=== PATIENT | female | born 1970 | race Caucasian/White ===

== ENCOUNTER 2016-08-14 15:09 | Emergency (ER) | payer MEDICAID ==
[2016-08-14 15:13] VITALS: RESP 16; TEMP 97.9
--- NOTE | 2016-08-14 15:29 | EDPHY ---
H & P Time Seen by Provider: 08/14/16 15:27 HPI/ROS: CHIEF COMPLAINT: Abdominal pain, nausea, vomiting. HISTORY OF PRESENT ILLNESS: The patient is a 46-year-old female with prothrombin deficiency and chronic intermittent nausea who presents with abdominal pain, nausea, and vomiting since this morning. She took Zofran at 1100 and 1400 to no effect, which is unusual for her. She vomited on arrival to the hospital and has had multiple episodes since. The pain is in the epigastrium and is constant. She denies fever, diarrhea, cough, recent sickness , or other complaints. REVIEW OF SYSTEMS: A complete 10-point review of systems was performed and is negative except for those items mentioned in the HPI. Past Medical/Surgical History: Endometriosis, prothrombin deficiency. Social History: Former smoker. Smoking Status: Former smoker Physical Exam: General Appearance: Alert, nontoxic Eyes: Pupils equal and round, no conjunctival pallor or injection ENT, Mouth: Mucous membranes moist Neck: Normal inspection Respiratory: Lungs are clear to auscultation Cardiovascular: Regular rate and rhythm Gastrointestinal: Mild, diffuse abdominal tenderness. Normal bowel sounds. Abdomen is soft. Neurological: A&O, nonfocal, normal gait Skin: Warm and dry, no rash Extremities: Nontender, no pedal edema Psychiatric: Mood and affect normal Constitutional: Initial Vital Signs Temperature (C) 36.6 C 08/14/16 15:11 Heart Rate 105 H 08/14/16 15:11 Respiratory Rate 16 08/14/16 15:11 Blood Pressure 138/89 H 08/14/16 15:11 O2 Sat (%) 95 08/14/16 15:11 O2 Delivery Mode Room Air Allergies/Adverse Reactions: enoxaparin sodium [From Lovenox] Allergy (Intermediate, Verified 11/07/14 15:29) red rash, pruritis Latex, Natural Rubber Allergy (Mild, Verified 11/07/14 15:29) Itching levofloxacin [From Levaquin] Allergy (Verified 09/16/15 06:59) soybean Allergy (Verified 11/07/14 15:29) sneezing, coughing Home Medications: Medication Instructions Recorded Acetaminophen [Tylenol 325mg (*)] 325 mg PO DAILY PRN 09/16/15 Fluticasone/Salmeter 500/50Mcg 1 puffs IH BID 09/16/15 [Advair 500/50 (*)] Ipratropium/Albuterol [Combivent 1 inh IH QID 09/16/15 Respimat Inhal [place](*)] Levothyroxine [Synthroid 50 mcg 50 mcg PO DAILY06 09/16/15 (*)] Metoprolol Tartrate [Lopressor 50 50 mg PO BID 09/16/15 mg (*)] Montelukast Sodium [Singulair 10 10 mg PO DAILY@1800 09/16/15 mg (*)] Warfarin Sodium [Coumadin 5MG (*)] 5 mg PO SUMOTUTHFRSA@20 09/16/15 Warfarin Sodium [Coumadin 5MG (*)] 7.5 mg PO WE@20 09/16/15 guaiFENesin [Mucinex 600 MG (*)] 600 mg PO BID 09/16/15 oxyCODONE IR [Oxycodone Ir (*)] 20 mg PO QID 09/16/15 Amoxicillin Trihydrate [Amoxil] 500 mg PO Q12 #14 cap 09/17/15 Medical Decision Making - Diagnostics Imaging: Study: Ultrasound of the: RUQ Indication: Pain, vomiting. Results: 1. No cholelithiasis or biliary ductal dilation. 2. Hepatomegaly and hepatic steatosis without evidence of ascites. 3. No right hydronephrosis. 4. No peripancreatic fluid. 5. Aorta obscured by bowel gas. No acute process. The study was read by the radiologist, Dr. Gomes. I viewed the images myself on the PACS system. ED Course/Re-evaluation: An IV was established. 1L IV saline administered for hydration, along with 12.5mg IV Phenergan for nausea and vomiting. 1622: Reassessed patient. She is still quite nauseated. 10mg IV Reglan administered. On exam she has continued epigastric tenderness. RUQ ultrasound ordered. 170: Patient still nauseated. Additional 12.5mg IV Phenergan administered. I spoke with Dr. Gomes, radiology, who reported the US to me negative for gallstones. No evidence of biliary colic or pancreatitis. Feels much better after Phenergan, wants to go home. Will stay on clear liquids for 24hrs. Abd remains benign. Abd pain precautions given. Differential Diagnosis: includes though not limited to cholecystitis, pancreatitis, SBO, PUD, appy. - Data Points Laboratory Results: Laboratory Results 08/14/16 15:40 08/14/16 15:40 Medications Given: Discontinued Medications Sodium Chloride (Ns) 1,000 mls @ 0 mls/hr IV ONCE ONE PRN Reason: Wide Open Stop: 08/14/16 15:37 Last Admin: 08/14/16 15:44 Dose: 1,000 mls Metoclopramide HCl (Reglan Injection) 10 mg IVP EDNOW ONE Stop: 08/14/16 16:22 Last Admin: 08/14/16 16:32 Dose: 10 mg Promethazine HCl (Phenergan Injection) 12.5 mg IVP EDNOW ONE Stop: 08/14/16 15:37 Last Admin: 08/14/16 15:48 Dose: 12.5 mg Promethazine HCl (Phenergan Injection) 12.5 mg IVP EDNOW ONE Stop: 08/14/16 17:08 Last Admin: 08/14/16 17:12 Dose: 12.5 mg Promethazine HCl (Phenergan 25 Mg Prepack #4) 1 btl TAKEHOME EDNOW ONE Stop: 08/14/16 17:48 Last Admin: 08/14/16 17:52 Dose: 1 btl Departure - Departure Disposition: Home, Routine, Self-Care Clinical Impression: Vomiting Qualifiers: Vomiting type: unspecified Vomiting Intractability: non-intractable Nausea presence: with nausea Qualifier Code: (R11.2) Nausea with vomiting, unspecified Abdominal pain Qualifiers: Abdominal location: left upper quadrant Qualifier Code: (R10.12) Left upper quadrant pain Condition: Good Instructions: Acute Nausea and Vomiting (ED), Acute Abdominal Pain (ED), Promethazine (By mouth) Additional Instructions: Drink only clear fluids tonight and tomorrow morning. Advance diet slowly as tolerable. Follow up with your primary care provider in the next 2-3 days if symptoms are not improving. Return to the emergency department if you experience serious worsening of condition. Referrals: EDWAR ADAMS [Primary Care Provider] - As per Instructions Report Scribed for: Valencia Christian Report Scribed by: Jair Camargo Date of Report: 08/14/16 Time of Report: 15:32 Physician Review and Approval Statement: 08/14/16 15:32 Portions of this note were transcribed by a medical referral coordinator. I personally performed a history, physical exam, medical decision making, and confirmed accuracy of information the transcribed note.
[2016-08-14] MEDS ORDERED: PROMETHAZINE HCL 25 MG/ML INJ IVP ONE ×2 (15:36→17:07)
[2016-08-14] MEDS ORDERED: NS 1,000 ML IV ONE (15:36)
[2016-08-14 15:51] LABS: % IMMATURE GRANULYOCYTES 0.3 % (0.0-1.1); ABSOLUTE IMMATURE GRANULOCYTES 0.04 10^3/uL (0.00-0.10); ADD DIFF? NO; ADD MORPH? NO; ADD SCAN? NO; ATYPICAL LYMPHOCYTE FLAG 0 (0-99); FRAGMENT RBC FLAG 0 (0-99); HEMATOCRIT 41.9 % (38.0-47.0); LEFT SHIFT FLG 0 (0-99); LIPEMIA HEMOLYSIS FLAG 80 (0-99); MEAN CELL HEMOGLOBIN 29.7 pg (27.9-34.1); MEAN CELL HEMOGLOBIN CONCENTR. 33.4 g/dL (32.4-36.7); MEAN CELL VOLUME 88.8 fL (81.5-99.8); MEAN PLATELET VOLUME 9.1 fL (8.7-11.7); PLATELET CLUMPS FLAG 0 (0-99); PLATELET COUNT 290 10^3/uL (150-400); RED BLOOD CELL COUNT 4.72 10^6/uL (4.18-5.33); RED CELL DISTRIBUTION WIDTH 13.6 % (11.5-15.2)
[2016-08-14 16:09] LABS: ALANINE AMINOTRANSFERASE 35 IU/L (9-52); ALBUMIN 4.1 g/dL (3.5-5.0); ALKALINE PHOSPHATASE 72 IU/L (38-126); ANION GAP 10 mEq/L (8-16); ASPARTATE AMINOTRANSFERASE 26 IU/L (14-46); BILIRUBIN,TOTAL 0.8 mg/dL (0.1-1.4); BILIRUBIN-CONJUGATED 0.2 mg/dL (0.0-0.5); BILIRUBIN-UNCONJUGATED 0.6 mg/dL (0.0-1.1); CALCIUM 9.6 mg/dL (8.5-10.4); CARBON DIOXIDE 28 mEq/l (22-31); CHLORIDE 99 mEq/L (97-110); CREATININE 0.7 mg/dL (0.6-1.0); GLOMERULAR FILTRATION RATE > 60; GLUCOSE 105 mg/dL (70-100); POTASSIUM 3.7 mEq/L (3.5-5.2); SODIUM 137 mEq/L (134-144); TOTAL PROTEIN 7.3 g/dL (6.3-8.2)
[2016-08-14] MEDS ORDERED: METOCLOPRAMIDE 10 MG/2 ML VIAL IVP ONE (16:21)
--- NOTE | 2016-08-14 17:12 | US ---
Ultrasound of the Abdomen Limited History: Nausea, vomiting, epigastric Abdominal pain. Comparison: None. Findings: Gallbladder: No shadowing calculi, wall thickening, or pericholecystic fluid. Common bile duct is 4 m m in diameter which is normal. Liver: Diffusely increased in echogenicity without definite focal lesions and measures 21 cm in lengt h. Renal: Right kidney measures 11 x 6 x 6 cm without hydronephrosis. Pancreas: Homogeneous without peripancreatic fluid. Tail obscured by bowel gas. Aorta: Partially obscured by bowel gas.. Impression: 1. No cholelithiasis or biliary ductal dilation. 2. Hepatomegaly and hepatic steatosis without evidence of ascites. 3. No right hydronephrosis. 4. No peripancreatic fluid. 5. Aorta obscured by bowel gas. Findings and recommendations discussed with Emergency Department physician, Dr. Valencia Christian at 1705 hour, today. Final report concurs with initial preliminary interpretation.
[2016-08-14] MEDS ORDERED: PROMETHAZINE 25 MG PREPACK #4 BTL TAKEHOME ONE (17:47)
[2016-08-14 18:02] VITALS: BP 136/102; PULSE 82; O2SAT 98
== END 2016-08-14 18:11 | disposition home or self-care (01) ==
DX: R11.2 Nausea with vomiting, unspecified (principal); R10.12 Left upper quadrant pain; Z87.891 Personal history of nicotine dependence; Z91.040 Latex allergy status; Z79.01 Long term (current) use of anticoagulants
CPT/HCPCS: 96374; J2550; J2765

== ENCOUNTER 2016-08-26 08:33 | Emergency (ER) | payer MEDICAID ==
[2016-08-26 08:41] VITALS: O2SAT 97
--- NOTE | 2016-08-26 09:04 | CPEKG ---
Heart Rate: 95 RR Interval: 632 P-R Interval: 188 QRSD Interval: 80 QT Interval: 352 QTC Interval: 443 P [place]: 24 QRS [place]: 19 T Wave [place]: 0 EKG Severity - BORDERLINE ECG - EKG Impression: SINUS RHYTHM EKG Impression: BORDERLINE T ABNORMALITIES, ANTERIOR LEADS Electronically Signed By: Kelton Villanueva 26-Aug-2016 14:31:23
[2016-08-26] MEDS ORDERED: NS 1,000 ML IV ONE (09:09)
--- NOTE | 2016-08-26 09:16 | EDPHY ---
H & P Stated Complaint: Wheezing, tight in chest, hurts to breathe HPI/ROS: CHIEF COMPLAINT: chest tightness, shortness of breath, wheezing HISTORY OF PRESENT ILLNESS: 2-3 day history of shortness of breath, wheezing, chest tightness. Symptoms are gradual onset and constant in duration. They wax and wane from mild to moderate. No actual chest pain at rest, but with inspiration and deep breathing she does have chest tightness. She feels that she has been wheezing and having occasional palpitations as well. No nausea or vomiting. No abdominal or urinary complaints. Pain radiates up into the upper chest. 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 She has been on Coumadin with a INR that is therapeutic. No other associated complaints or modifying factors. PRIOR CARDIAC WORKUPS: stress test and heart catheterization in 2013 due to tachycardia and PE. REVIEW OF SYSTEMS: Ten systems reviewed and are negative unless otherwise noted in the HPI EXAMINATION General Appearance: Alert, no distress Head: normocephalic, atraumatic Eyes: Pupils equal and round, no conjunctival pallor or injection ENT, Mouth: Mucous membranes moist . Uvula midline pain Neck: Normal inspection, supple, non-tender Respiratory: Lungs are clear to auscultation. No wheezing, crackles or consolidation. Mild rhonchi in the lung bases. Cardiovascular: Regular rate and rhythm . No murmur. Pulses intact distally. Gastrointestinal: Abdomen is soft and nontender . No CVA tenderness Back: non-tender, no bony abnormalities Neurological: A&O, nonfocal, normal gait Skin: Warm and dry, no rash Extremities: Nontender, symmetric lower extremity 1+ edema nonpitting Psychiatric: Mood and affect normal DIFFERENTIAL DIAGNOSES: Including but not limited to Asthma exacerbation, bronchitis, pneumonia, pulmonary embolism, ACS, coronary artery disease MDM: 9:15 a.m. shortness of breath with intermittent chest tightness in a patient with previous DVT and bilateral PEs. Lungs are clear in all paiz. Given her risk factors, I have ordered a CT scan of the chest rule out PE. We will obtain an I-STAT to quickly verify her creatinine and obtain a CT scan. Her vital signs were well within normal limits and she is in no acute distress. 9:40 a.m. I have re-evaluated this patient. They remain hemodynamically stable and in no distress. No further complaints at this time.Labs and CT scan are pending 10:[address] discussed with radiologist Dr. Sommer. He noted there is no evidence of PE. No evidence of pneumonia. No bronchial or perihilar thickening. There is some calcification of the LAD. I re-evaluated the patient she is resting comfortably but does know some tightness. Troponin is negative and her Discomfort started yesterday morning. 11:00 a.m. all labs are within normal limits as well. She is still feeling some mild tightness but no actual chest pain at rest. We will consult her strategy analyst to ensure that she has close follow-up later today or tomorrow to continue her workup. The patient is comfortable with this plan and remains hemodynamically stable at this time. 11:15 a.m. I have discussed the case with the patient's cardiology office, speaking with Olive Morris NP, and she informed me that they can see the patient on Friday 1 :00 p.m.. She did review the patient's EKG on the phone with me. Patient is comfortable this plan and discharged home in stable condition. Return to the ER for any worsening pain, shortness of breath, fever, nausea or vomiting. EKG: Interpreted by Dr. Villanueva Rate is 95 beats per minute, normal sinus rhythm. OK interval 188. QT interval 352. Normal axis. T-waves inverted in AVR and V1. T-waves are flattened in the anterolateral leads. No ST depression or elevation. Interpretation: Normal sinus rhythm with borderline T waves SUPERVISION: Patient was evaluated in conjunction with the supervising physician. Please see their note for details. Source: Patient Exam Limitations: No limitations - Personal History LMP (Females 10-55): Now Current Tetanus Diphtheria and Acellular Pertussis (TDAP): Yes Tetanus Vaccine Date: 2015 - Medical/Surgical History Hx Asthma: Yes Hx Chronic Respiratory Disease: No Hx Diabetes: No Hx Cardiac Disease: No Hx Renal Disease: No Hx Cirrhosis: No Hx Alcoholism: No Hx HIV/AIDS: No Hx Splenectomy or Spleen Trauma: No Other PMH: MTFR,and prothrombin clotting disorders, Asthma, HTN, Diverticulitis , Rosasia, DVT and PE. venous reflux disease, post thrombotic syndrome - Social History Smoking Status: Former smoker Constitutional: Initial Vital Signs Temperature (C) 98.6 F 08/26/16 08:38 Heart Rate 93 08/26/16 08:38 Respiratory Rate 18 08/26/16 08:38 Blood Pressure 135/86 H 08/26/16 08:38 O2 Sat (%) 97 08/26/16 08:38 O2 Delivery Mode Room Air Allergies/Adverse Reactions: enoxaparin sodium [From Lovenox] Allergy (Intermediate, Verified 11/07/14 15:29) red rash, pruritis levofloxacin [From Levaquin] Allergy (Intermediate, Verified 08/26/16 08:38) Hives soybean Allergy (Intermediate, Verified 08/26/16 08:38) sneezing, coughing, hives Latex, Natural Rubber Allergy (Mild, Verified 11/07/14 15:29) Itching Home Medications: Medication Instructions Recorded Fluticasone Nasal [Flonase Nasal 2 sprays NASAL DAILY 08/26/16 [place] (RX)] Fluticasone/Salmeter 500/50Mcg 1 puffs IH BID 08/26/16 [Advair 500/50 (*)] Ipratropium/Albuterol [Duoneb (*)] 3 ml IH 08/26/16 Levalbuterol 1.25 mg [Xopenex 1.25 mg IH 08/26/16 1.25MG Neb (*)] Levalbuterol Inhaler [Xopenex Hfa 2 puffs IH 08/26/16 Inhaler (*)] Levothyroxine [Synthroid 50 mcg 50 mcg PO DAILY06 08/26/16 (*)] Metoprolol Tartrate [Lopressor 50 50 mg PO BID 08/26/16 mg (*)] Montelukast Sodium [Singulair 10 10 mg PO DAILY@1800 08/26/16 mg (*)] methylPREDNISolone [Medrol Dose 1 each PO AD 08/26/16 [place]] oxyCODONE CR [OxyCONTIN] 20 mg PO 08/26/16 Medical Decision Making - Data Points Laboratory Results: Laboratory Results 08/26/16 09:00 08/26/16 09:00 08/26/16 09:00 WBC 9.83 H 10^3/uL (3.80-9.50) RBC 4.77 10^6/uL (4.18-5.33) Hgb 14.2 g/dL (12.6-16.3) Hct 42.7 % (38.0-47.0) MCV 89.5 fL (81.5-99.8) MCH 29.8 pg (27.9-34.1) MCHC 33.3 g/dL (32.4-36.7) RDW 13.7 % (11.5-15.2) Plt Count 281 10^3/uL (150-400) MPV 9.4 fL (8.7-11.7) Neut % (Auto) 91.5 H % (39.3-74.2) Lymph % (Auto) 6.3 L % (15.0-45.0) [place] % (Auto) 1.1 L % (4.5-13.0) Eos % (Auto) 0.1 L % (0.6-7.6) Baso % (Auto) 0.4 % (0.3-1.7) Nucleat RBC Rel Count 0.0 % (0.0-0.2) Absolute Neuts (auto) 8.99 H 10^3/uL (1.70-6.50) Absolute Lymphs (auto) 0.62 L 10^3/uL (1.00-3.00) Absolute Monos (auto) 0.11 L 10^3/uL (0.30-0.80) Absolute Eos (auto) 0.01 L 10^3/uL (0.03-0.40) Absolute Basos (auto) 0.04 10^3/uL (0.02-0.10) Absolute Nucleated RBC 0.00 10^3/uL (0-0.01) Immature Gran % 0.6 % (0.0-1.1) Immature Gran # 0.06 10^3/uL (0.00-0.10) PT 21.0 H SEC (12.0-15.0) INR 1.80 H (0.83-1.16) APTT 37.6 SEC (23.0-38.0) Sodium 142 mEq/L (134-144) Potassium 4.2 mEq/L (3.5-5.2) Chloride 105 mEq/L (97-110) Carbon Dioxide 24 mEq/l (22-31) Anion Gap 13 mEq/L (8-16) BUN 11 mg/dL (7-23) Creatinine 0.7 mg/dL (0.6-1.0) Estimated GFR > 60 Glucose 141 H mg/dL (70-100) Calcium 9.5 mg/dL (8.5-10.4) Troponin I < 0.012 ng/mL (0-0.034) NT-Pro-B Natriuret Pep 132 H pg/mL (0-125) Medications Given: Discontinued Medications Sodium Chloride (Ns) 1,000 mls @ 0 mls/hr IV ONCE ONE PRN Reason: Wide Open Stop: 08/26/16 09:10 Last Admin: 08/26/16 09:17 Dose: 1,000 mls Departure - Departure Disposition: Home, Routine, Self-Care Clinical Impression: Shortness of breath, Chest tightness Condition: Good Instructions: Dyspnea (ED), Tachycardia (ED) Additional Instructions: Follow up with strategy analyst on Friday at 1:00 p.m. as scheduled. Return to ER for any worsening pain, nausea, sweating or shortness of breath Referrals: EDWAR ADAMS [Primary Care Provider] - As per Instructions
[2016-08-26 09:21] LABS: % IMMATURE GRANULYOCYTES 0.6 % (0.0-1.1); ABSOLUTE IMMATURE GRANULOCYTES 0.06 10^3/uL (0.00-0.10); ADD DIFF? NO; ADD MORPH? NO; ADD SCAN? NO; ATYPICAL LYMPHOCYTE FLAG 0 (0-99); FRAGMENT RBC FLAG 0 (0-99); HEMATOCRIT 42.7 % (38.0-47.0); HEMOGLOBIN 14.2 g/dL (12.6-16.3); LEFT SHIFT FLG 0 (0-99); LIPEMIA HEMOLYSIS FLAG 80 (0-99); MEAN CELL HEMOGLOBIN 29.8 pg (27.9-34.1); MEAN CELL HEMOGLOBIN CONCENTR. 33.3 g/dL (32.4-36.7); MEAN CELL VOLUME 89.5 fL (81.5-99.8); MEAN PLATELET VOLUME 9.4 fL (8.7-11.7); PLATELET CLUMPS FLAG 10 (0-99); PLATELET COUNT 281 10^3/uL (150-400); RED BLOOD CELL COUNT 4.77 10^6/uL (4.18-5.33); RED CELL DISTRIBUTION WIDTH 13.7 % (11.5-15.2)
[2016-08-26 09:38] LABS: ANION GAP 13 mEq/L (8-16); CALCIUM 9.5 mg/dL (8.5-10.4); CARBON DIOXIDE 24 mEq/l (22-31); CHLORIDE 105 mEq/L (97-110); CREATININE 0.7 mg/dL (0.6-1.0); GLOMERULAR FILTRATION RATE > 60; GLUCOSE 141 mg/dL (70-100); POTASSIUM 4.2 mEq/L (3.5-5.2); SODIUM 142 mEq/L (134-144)
[2016-08-26 09:40] LABS: INR 1.8 (0.83-1.16)
[2016-08-26 09:41] LABS: APTT 37.6 SEC (23.0-38.0)
[2016-08-26] MEDS ORDERED: IOPAMIDOL (ISOVUE 370) 100 ML BTL IV ONE (09:47)
[2016-08-26 09:49] LABS: TROPONIN I < 0.012 ng/mL (0-0.034)
--- NOTE | 2016-08-26 10:51 | CT ---
Contrast Enhanced CT Scan of the Chest CT (CT Angiography) Clinical History: 46-year-old female with shortness of breath and wheezing, and some pleuritic chest pain. Rule out PE. The patient had a history of a PE in 2013 and has an underlying congenital coagulo fracisco, although she is not hypoxic and on auscultation, her lungs are clear. Technique: Following the uncomplicated intravenous administration of 90 [id number], a multidetector helical CT scan was obtained from the base of the neck inferiorly to the upper abdomen during peak a rterial phase, with images reformatted in soft tissue, lung, liver, and bone windows, and are reforma tted at 1.50 mm and 4/3 mm increments. Multiplanar reconstructions were reviewed on the workstation. The DFOV is 36.0 cm. Dose reduction techniques were utilized. Comparison Studies: CT angiography of the chest, dated September 16, 2015, and right upper quadrant ab dominal sonography, dated August 14, 2016. Findings: CT Angiography: The main pulmonary artery, the main right and left pulmonary arteries, and the first and second order pulmonary segments are contrast-opacified, with no filling defect to suggest acute o r chronic thromboemboli. There is no interventricular septum deviation, nor is there any reflux of co ntrast into the intrahepatic IVC. The ascending and the descending thoracic aorta, as well as the vis ualized upper abdominal aorta are normal in caliber, with no aneurysm or dissection. There is a priyank l anatomic arrangement of the great vessels off of the aortic arch. There is atherosclerotic calcific ation of the left anterior descending coronary artery. The heart is mildly enlarged. The pericardium is normal. Contrast-Enhanced CT Scan of the Chest: The lungs are clear of infiltrate, atelectasis, or pulmonary nodule. There is some minimal linear stable scarring in the medial right costophrenic angle adjacent to the hemidiaphragm. The previously noted triangular-shaped left lower lobe atelectasis has since re solved. There is no pleural effusion, pneumothorax, or pneumomediastinum. 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 There is no pathologically-enlarged adenopathy. The visualized portions of the thyroid gland a re normal. The previous study identified a small sebaceous cyst along the posterior upper right of mi dline soft tissues, which has essentially resolved. In the upper abdomen, there is some mild generali zed hepatic steatosis. The osseous structures are age-appropriate, with some small thoracic degenerat rory spurs. Impression: 1. There is no CT evidence of pulmonary artery thrombi emboli. 2. LAD coronary artery atherosclerotic calcification with mild cardiomegaly. 3. Hepatic steatosis. Results were conveyed to Glenn James PA-C. A test result has been communicated to a licensed care provider and documented in the [facility] Result system on 08/26/2016 10:41, Message ID [id number].
[2016-08-26 11:28] VITALS: BP 121/77; PULSE 91; RESP 99; TEMP 97.5
== END 2016-08-26 11:27 | disposition home or self-care (01) ==
DX: R07.89 Other chest pain (principal); R06.02 Shortness of breath; J45.909 Unspecified asthma, uncomplicated; I10 Essential (primary) hypertension; Z87.891 Personal history of nicotine dependence; Z91.040 Latex allergy status; Z95.818 Presence of other cardiac implants and grafts
CPT/HCPCS: Q9967

== ENCOUNTER → 2017-01-10 | Outpatient (CLI) | payer BC | LOC: FIMAGING 15:46 | PROVIDERS: ATTEND Internal Medicine Hematology & Oncology | DX: M79.605 Pain in left leg (principal); Z86.711 Personal history of pulmonary embolism ==

== ENCOUNTER 2017-01-14 12:41 | Emergency (ER) | payer BC ==
[2017-01-14 12:47] VITALS: RESP 16
--- NOTE | 2017-01-14 13:36 | EDPHY ---
H & P Stated Complaint: fall on coumadin, at 1130. 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 She states that she tripped over a desk. She fell into the wall. She hit her face on the wall and scraped her arms on the desk. She has abrasions to the triceps area both arms. She called her doctor because she was worried about her Coumadin use. She was referred here to the emergency department. She had her INR checked today and was 2.1. She denies headache. She denies loss of consciousness. She denies neck injury. She denies nausea vomiting or seizures. REVIEW OF SYSTEMS: Constitutional: denies: chills, fever, recent illness, recent injury EENTM: denies: blurred vision, double vision, nose congestion Respiratory: denies: cough, shortness of breath Cardiac: denies: chest pain, irregular heart rate, lightheadedness, palpitations Gastrointestinal/Abdominal: denies: abdominal pain, diarrhea, nausea, vomiting, blood streaked stools Genitourinary: denies: dysuria, frequency, hematuria, pain Musculoskeletal: denies: joint pain, muscle pain Skin: See HPI Neurological: denies: headache, numbness, paresthesia, tingling, dizziness, weakness Hematologic/Lymphatic: denies: blood clots, easy bleeding, easy bruising Immunologic/allergic: denies: HIV/AIDS, transplant EXAM: GENERAL: Well-appearing, well-nourished and in no acute distress. HEAD: Atraumatic, normocephalic. EYES: Pupils equal round and reactive to light, extraocular movements intact, sclera anicteric, conjunctiva are normal. ENT: No visible facial contusions or abrasions, no tenderness. TMs normal, nares patent, oropharynx clear without exudates. Moist mucous membranes. NECK: Normal range of motion, supple without lymphadenopathy or JVD. LUNGS: Breath sounds clear to auscultation bilaterally and equal. No wheezes rales or rhonchi. HEART: Regular rate and rhythm without murmurs, rubs or gallops. ABDOMEN: Soft, nontender, normoactive bowel sounds. No guarding, no rebound. No masses appreciated. BACK: No CVA tenderness, no spinal tenderness, step-offs or deformities EXTREMITIES: Normal range of motion, no pitting or edema. No clubbing or cyanosis. NEUROLOGICAL: Cranial nerves II through XII grossly intact. Normal speech, normal gait. 5/5 strength, normal movement in all extremities, normal sensation PSYCH: Normal mood, normal affect. SKIN: Abrasions to bilateral triceps region Source: Patient Exam Limitations: No limitations - Personal History LMP (Females 10-55): 8-14 Days Ago Current Tetanus/Diphtheria Vaccine: Yes Current Tetanus Diphtheria and Acellular Pertussis (TDAP): Yes Tetanus Vaccine Date: 2015 - Medical/Surgical History Hx Asthma: Yes Hx Chronic Respiratory Disease: No Hx Diabetes: No Hx Cardiac Disease: No Hx Renal Disease: No Hx Cirrhosis: No Hx Alcoholism: No Hx HIV/AIDS: No Hx Splenectomy or Spleen Trauma: No Other PMH: MTFR,and prothrombin clotting disorders, Asthma, HTN, Diverticulitis , Rosasia, DVT and PE. venous reflux disease, post thrombotic syndrome - Family History Significant Family History: No pertinent family hx - Social History Smoking Status: Former smoker Alcohol Use: None Drug Use: None Constitutional: Initial Vital Signs Temperature (C) 36.4 C 01/14/17 12:44 Heart Rate 86 01/14/17 12:44 Respiratory Rate 16 01/14/17 12:44 Blood Pressure 139/93 H 01/14/17 12:44 O2 Sat (%) 94 01/14/17 12:44 O2 Delivery Mode Room Air Allergies/Adverse Reactions: enoxaparin sodium [From Lovenox] Allergy (Intermediate, Verified 11/07/14 15:29) red rash, pruritis levofloxacin [From Levaquin] Allergy (Intermediate, Verified 08/26/16 08:38) Hives soybean Allergy (Intermediate, Verified 08/26/16 08:38) sneezing, coughing, hives Latex, Natural Rubber Allergy (Mild, Verified 11/07/14 15:29) Itching Home Medications: Medication Instructions Recorded Fluticasone Nasal [Flonase Nasal 2 sprays NASAL DAILY 08/26/16 [place] (RX)] Fluticasone/Salmeter 500/50Mcg 1 puffs IH BID 08/26/16 [Advair 500/50 (*)] Ipratropium/Albuterol [Duoneb (*)] 3 ml IH 08/26/16 Levalbuterol 1.25 mg [Xopenex 1.25 mg IH 08/26/16 1.25MG Neb (*)] Levalbuterol Inhaler [Xopenex Hfa 2 puffs IH 08/26/16 Inhaler (*)] Levothyroxine [Synthroid 50 mcg 50 mcg PO DAILY06 08/26/16 (*)] Metoprolol Tartrate [Lopressor 50 50 mg PO BID 08/26/16 mg (*)] Montelukast Sodium [Singulair 10 10 mg PO DAILY@1800 08/26/16 mg (*)] methylPREDNISolone [Medrol Dose 1 each PO AD 08/26/16 [place]] oxyCODONE CR [OxyCONTIN] 20 mg PO 08/26/16 Medical Decision Making - Diagnostics Imaging: Discussed imaging studies w/ well testing operator Radiologist ED Course/Re-evaluation: Head CT ordered in this adult patient for trauma for the following indication: Anticoagulated 2:30 p.m. the patient is feeling well. We discussed head CT results and she is relieved. She declines further workup or testing at this time. Her wounds have been cleaned and dressed. Differential Diagnosis: Partial list of the Differential diagnosis considered include but were not limited to; abrasion, head injury and although unlikely based on the history and physical exam, I also considered fracture, cervical spine injury. I discussed these differential diagnoses and the plan with the patient as well as the usual and expected course. The patient understands that the diagnosis is provisional and that in medicine we are not always correct and that further workup is often warranted. Usual and customary warnings were given. All of the patient's questions were answered. The patient was instructed to return to the emergency department should the symptoms at all worsen or return, otherwise to followup with the physician as we discussed. Departure - Departure Disposition: Home, Routine, Self-Care Clinical Impression: Abrasion Fall Qualifiers: Encounter type: initial encounter Qualified Code(s): W19.XXXA - Unspecified fall, initial encounter Condition: Fair Instructions: Abrasion (ED) Referrals: EDWAR ADAMS [Primary Care Provider] - As per Instructions
[2017-01-14 15:02] VITALS: BP 134/92; PULSE 78; TEMP 98.4; O2SAT 95
== END 2017-01-14 15:01 | disposition home or self-care (01) ==
DX: S40.811A Abrasion of right upper arm, initial encounter (principal); S40.812A Abrasion of left upper arm, initial encounter; I10 Essential (primary) hypertension; J45.909 Unspecified asthma, uncomplicated; Z87.891 Personal history of nicotine dependence; Z91.040 Latex allergy status; Z79.01 Long term (current) use of anticoagulants; W01.0XXA Fall on same level from slipping, tripping and stumbling without subsequent striking against object, initial encounter